=== PATIENT | male | born 2000 | race Hispanic/Latino ===

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

== ENCOUNTER 2022-08-24 04:45 | Emergency (ER) | payer MEDICAID, OTHER ==
[~2022-08-24] VITALS: Ht 182.9 cm; Wt 102.1 kg
[2022-08-24 04:50] VITALS: BP 147/77
[2022-08-24] MEDS ORDERED: TETANUS/DIPHTHERIA TOXOID [ADULT] 0.5 ML VIAL IM ONE (05:30)
== END 2022-08-24 05:31 | disposition home or self-care (01) ==
LOC: EDH 04:45
DX: S61.431A Puncture wound without foreign body of right hand, initial encounter (principal); W26.8XXA Contact with other sharp object(s), not elsewhere classified, initial encounter; Y93.89 Activity, other specified; Y92.89 Other specified places as the place of occurrence of the external cause; Y99.0 Civilian activity done for income or pay
CPT/HCPCS: 90471; 90714